=== PATIENT | female | born 1995 | race African-American/Black ===

== ENCOUNTER 2017-06-19 09:38 | Emergency (ER) | payer OTHER, SELFPAY ==
[2017-06-19 10:16] LABS: Bilirubin Negative (Negative); Blood, Urine Negative (Negative); Glucose, Urine (Dipstick) Negative (Negative); Ketone, Urine Negative (Negative); Nitrite Negative (Negative); Protein, Urine (Dipstick) Negative (Neg-Trace)
== END 2017-06-19 10:34 | disposition home or self-care (01) ==
LOC: ERS 09:38
DX: O99.89 Other specified diseases and conditions complicating pregnancy, childbirth and the puerperium (principal); R10.31 Right lower quadrant pain; O99.331 Smoking (tobacco) complicating pregnancy, first trimester; F17.210 Nicotine dependence, cigarettes, uncomplicated
CPT/HCPCS: 81003; 81025; 99284

== ENCOUNTER 2017-07-27 10:07 | Emergency (ER) | payer MEDICAID, OTHER ==
[2017-07-27] MEDS ORDERED: Acetaminophen 500 MG TAB ONE (11:06)
== END 2017-07-27 11:25 | disposition home or self-care (01) ==
LOC: ERS 10:07
DX: J02.9 Acute pharyngitis, unspecified (principal); F17.210 Nicotine dependence, cigarettes, uncomplicated; Z79.899 Other long term (current) drug therapy
CPT/HCPCS: 87081; 87430; 99283

== ENCOUNTER 2017-09-09 15:15 | Emergency (ER) | payer OTHER ==
[2017-09-09 16:45] LABS: Bilirubin Negative (Negative); Blood, Urine Negative (Negative); Clarity CLEAR (Clear); Glucose, Urine (Dipstick) Negative (Negative); Leukocyte Small (Negative); Nitrite Negative (Negative); Protein, Urine (Dipstick) Negative (Neg-Trace); Specific Gravity, Urine 1.021 (1.002-1.036); Urobilinogen 0.2 mg/dL (0.2-1.0)
[2017-09-09 16:47] LABS: Bacteria/HPF 1+ HPF (None Seen); Hyaline Casts/LPF 0-3 HYALINE CAST LPF (0-3 Hyaline); Pathc Cast-AUWi Flag 0.27 (0-2.49); RBC/HPF 0-3 HPF (0-3); Squamous Epithelial 0-3 HPF (0-3)
== END 2017-09-09 17:01 | disposition home or self-care (01) ==
LOC: ERS 15:15
DX: O9A.212 Injury, poisoning and certain other consequences of external causes complicating pregnancy, second trimester (principal); S39.91XA Unspecified injury of abdomen, initial encounter; O23.12 Infections of bladder in pregnancy, second trimester; O99.332 Smoking (tobacco) complicating pregnancy, second trimester; F17.210 Nicotine dependence, cigarettes, uncomplicated; Y04.2XXA Assault by strike against or bumped into by another person, initial encounter
CPT/HCPCS: 81003; 81015

== ENCOUNTER 2017-09-09 17:26 | Day surgery (SDC) | payer OTHER ==
[2017-09-09 17:34] VITALS: BP 136/78; TEMP 98.8; BMI 34.3
[2017-09-09] MEDS ORDERED: FLU VACC QS2017-18 36 mo. & older 0.5 ML SYRINGE IM ONE (18:15)
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
== END 2017-09-09 19:25 | disposition home or self-care (01) ==
LOC: L&D/OP 17:26
PROVIDERS: ATTEND Family Medicine
DX: O99.89 Other specified diseases and conditions complicating pregnancy, childbirth and the puerperium (principal); R10.813 Right lower quadrant abdominal tenderness; O99.322 Drug use complicating pregnancy, second trimester; F12.90 Cannabis use, unspecified, uncomplicated; Z3A.24 24 weeks gestation of pregnancy; Z79.899 Other long term (current) drug therapy
CPT/HCPCS: 76805; 81003; 81015; 99282

== ENCOUNTER 2017-11-20 09:54 | Observation (INO) | payer OTHER ==
[2017-11-20 10:51] VITALS: BMI 32.8
--- NOTE | 2017-11-20 11:29 | PDOC.LDHP ---
Labor and Delivery H&P Chief complaint: other (Elevated BP in clinic) HPI: 22 G1 at 34.5 w/hx of PIH here due to concern for Pre eclampsia. In clinic today she had BPs in the 150s/90s, typically she has been 140s/90s for the past few weeks. She is not taking any oral meds for PIH. has been otherwise uncomplicated. She is currently getting weekly BPP/NST. She is scheduled for induction at 37 weeks. She denies loss of fluid, decreased movement, or vaginal bleeding. She does have a headache. She denies changes in vision, dizziness, or abd pain Current gestational age (weeks): 34 (34.5) Due date: 12/27/17 Grav: 1 Current complications: hypertension, other (Previous tobacco and marijuana use) Abnormal US findings: No Current medications: pre-mandy vitamins - Physical Exam Abnormal vital signs: BP 159/106 General: NAD Heart: RRR Lungs: CTAB Abdomen: gravid Extremeties: no edema FHT: category 1, variability present, absent or minimal variables [place] contractions every: rare - OB Labs Blood type: A RH: positive Antibody Screen: negative HIV: negative RPR: negative HEPSAg: negative 1 hour GCT: negative GBS: unknown Rubella: immune - Assessment Gestational HTN, concern for pre - Plan Plan: observation in L&D -: HTN, r/o pre e - Urine protein/cr, CMP, CMC, Uric acid - monitor BP - Continuous monitoring - BPP/NST - 1g tylenol for headache - BP has improved to low 150s systolic from high of 159 systolic. Pt will need PO antihypertensives outpt. Will use IV meds if indicated while here. - Re evaluate after labs result, will likely obs pt over night. <Noel Alvarado - Last Filed: 11/20/17 11:23> <Brittany Li - Last Filed: 11/20/17 14:52> Allergies/Adverse Reactions: Allergies Allergy/AdvReac Type Severity Reaction Status Date / Time No Known Allergies Allergy Verified 09/09/17 17:35 Attending Addendum - Attending Addendum Date/Time: 11/20/17 3833 I personally evaluated the patient and discussed the management with Dr. Alvarado I agree with the History, Examination, Assessment and Plan documented above with any addition or exceptions noted below. 22 yo female at 34.5 wks by LMP 1. sIUP: IOB labs and anatomy reviewed. 1 hour gtt WNL. 3T negative. GBS to be collected today. 2. gHTN: Sent from clinic for elevated blood pressure. Has been on the monitor with occasional severe range (3x) but not consistent. Labs stable for previous. Initially had a headache that resolved with Tylenol. Will start collection of 24 hour protein and continue to monitor blood pressure overnight to see if remains elevated. If remains elevated to 150s will give steroids. If remains severe will likely start steroids along with induction of labor. BPP 03/07. Reactive NST. CL = 5 cm. EFW = 2332 (27%). Repeat labs in AM. 3. Hx of marijuana use: Repeat UDS pending 4. Hx of Chlamydia: FRANCHESCA negative Will place in obs and monitor closely for changes. Karin <Brittany Li - Last Filed: 11/20/17 14:52>
[2017-11-20] MEDS ORDERED: Acetaminophen 500 MG TAB PO SCH (11:45)
[2017-11-20 12:29] LABS: Creatinine, Urine 52.69 mg/dL (47-110); Protein, Urine Random Quant Less than 10 mg/dL
[2017-11-20] MEDS: Lactated Ringer's 1,000 ML IV SCH (13:00)
[2017-11-20] MEDS ORDERED: Sodium Chloride 0.9% 1,000 ML IV SCH (13:00)
[2017-11-20 13:10] LABS: #Basophils 0.1 thou/uL (0.0-0.2); #Eosinphils 0.1 thou/uL (0.0-0.7); #Lymphocytes 1.5 thou/uL (1.20-3.40); #Monocytes 0.6 thou/uL (0.11-0.59); #Neutrophils 6.2 thou/uL (1.40-6.50); %Basophils 0.7 % (0.0-1.0); %Eosinophils 1.1 % (0.0-10.0); %Lymphocytes 17.3 % (21.0-51.0); %Monocytes 7.3 % (0.0-10.0); %Neutrophils 73.5 % (42.0-75.0); Hemoglobin 12.8 g/dL (12.0-16.0); Mean Platelet Volume 7.5 fL (7.4-10.4); Platelet Count 196 thou/uL (130-400); RBC Distribution Width 11.4 % (11.5-14.5); Red Blood Cell (RBC) Count 4.14 mill/uL (4.20-5.40); White Blood Cell (WBC) Count 8.5 thou/uL (4.8-10.8)
[2017-11-20 13:41] LABS: ALT (SGPT) 19 U/L (8-55); AST (SGOT) 21 U/L (5-34); Albumin 3.8 g/dL (3.5-5.0); Alkaline Phosphatase 145 U/L (40-150); Anion Gap 12 mmol/L (10-20); BUN (Urea Nitrogen) 6 mg/dL (7.0-18.7); Bilirubin, Total 0.4 mg/dL (0.2-1.2); Calc. Creatinine Clearance 185 mL/min (70-130); Calcium 8.7 mg/dL (7.8-10.44); Carbon Dioxide 21 mmol/L (22-29); Chloride 106 mmol/L (98-107); Estimated GFR-MDRD Greater than 90; Glucose 89 mg/dL (70-105); Potassium 3.2 mmol/L (3.5-5.1); Protein, Total 6.8 g/dL (6.0-8.3); Sodium 136 mmol/L (136-145); Uric Acid 4.1 mg/dL (2.6-6.0)
--- NOTE | 2017-11-20 13:44 | ULT ---
ULTRASOUND BIPOHYSICAL PROFILE: HISTORY: Preeclampsia. FINDINGS: A single live intrauterine gestation was seen with a heart rate of 130 b.p.m. The LISA measures 14 cm. Placenta is posteriorly located without evidence of placenta previa. There is normal tone, breathing, movement, and amniotic fluid volume. IMPRESSION: Ultrasound biophysical score is 8 out of 8. POS: [facility]
--- NOTE | 2017-11-20 14:10 | PDOC.LDPN ---
Labor & Delivery Progress Note - Subjective Subjective: comfortable - Objective Abnormal vital signs: Multiple BP over 140/80 Uterine fundus: non tender FHT: category 1, variability present, absent or minimal variables [place] contractions every: few - Assessment (1) Gestational hypertension Code(s): O13.9 - GESTATIONAL HTN W/O SIGNIFICANT PROTEINURIA, UNSP TRIMESTER Current Visit: Yes Status: Acute QualifierTitle: Trimester: third trimester Qualified Code(s): O13.3 - Gestational [-induced] hypertension without significant proteinuria, third trimester Comment: Continue to monitor over night. Pt has had 2 severe range pressures. If these continue will consider giving steroids and IOL. Continue 24 hour urine protein, CBC/CMP in am, continuous monitoring. (2) Third trimester Code(s): Z34.93 - ENCNTR FOR SUPRVSN OF NORMAL PREG, UNSP, THIRD TRIMESTER Current Visit: Yes Status: Acute (3) Hypokalemia Code(s): E87.6 - HYPOKALEMIA Current Visit: Yes Status: Acute Comment: Mg pending. Will replace K and Mg if indicated. Plan: other <Noel Alvarado - Last Filed: 11/20/17 14:06> Attending Addendum - Attending Addendum Date/Time: 11/20/17 1500 I personally evaluated the patient and discussed the management with Dr. Alvarado I agree with the History, Examination, Assessment and Plan documented above with any addition or exceptions noted below. 22 yo female at 34.5 wks by LMP/18.6 wk sono here for preeclampsia rule out. 1. sIUP: IOB labs and anatomy reviewed. 1 hour gtt WNL. 3T negative. GBS to be collected today. 2. gHTN: Sent from clinic for elevated blood pressure. Has been on the monitor with occasional severe range (3x) but not consistent. Labs stable from previous but uric acid is slowly trending up (3.5 --> 3.7 --> 4.0 --> 4.1). Initially had a headache that resolved with Tylenol. Will start collection of 24 hour protein and continue to monitor blood pressure and symptoms overnight to see changes persist. If remains elevated to 150s will give steroids. If remains severe will likely start steroids along with induction of labor. BPP /. Reactive NST. CL = 5 cm. EFW = 2332 (27%). Repeat labs in AM. 3. Hx of marijuana use: Repeat UDS pending 4. Hx of Chlamydia: FRANCHESCA negative Will place in obs and monitor closely for changes. Karin <Brittany Li - Last Filed: 11/20/17 15:01>
[2017-11-20] MEDS ORDERED: diphenhydrAMINE 25 MG CAP PO SCH (14:30)
[2017-11-20] MEDS ORDERED: Acetaminophen 500 MG TAB PO PRN (14:33)
[2017-11-20] MEDS ORDERED: Docusate 100 MG CAP PO PRN (14:33)
[2017-11-20] MEDS ORDERED: diphenhydrAMINE 50 MG CAP PO PRN (14:33)
[2017-11-20] MEDS ORDERED: Ondansetron HCl/PF 4 MG/2 ML Vial IVP PRN (14:33)
[2017-11-20] MEDS ORDERED: Potassium Chloride 20 MEQ TAB PO SCH (14:45)
[2017-11-20 15:14] LABS: Amphetamine Not Detected (NotDetected); Barbiturates Screen Not Detected (NotDetected); Benzodiazepine Screen Not Detected (NotDetected); Cocaine Metabolite Screen Not Detected (NotDetected); Medtox Control Line Valid? VALID (VALID); Medtox Reader # READER 1; Methadone Not Detected (NotDetected); Methamphetamine Not Detected (NotDetected); Opiate Screen Not Detected (NotDetected); Oxycodone Screen Not Detected (NotDetected); Phencyclidine (PCP) Not Detected (NotDetected); THC/Cannabinoid Screen Not Detected (NotDetected); Tricyclic Screen Not Detected (NotDetected)
--- NOTE | 2017-11-20 15:43 | ULT ---
OB ULTRASOUND LIMITED: History: Assess for growth. Comparison: 09-09-17 FINDINGS: Cervix is closed. The biparietal diameter is 8.6 cm, 34 weeks 5 days. Head circumference is 31.19 cm, 34 weeks 6 days. Abdominal circumference is 29.64 cm, 33 weeks 4 days. Femur length is 6.65 cm, 34 w eeks 2 day. Estimated weight is 2332 grams, 27th percentile. Heart rate is documented. IMPRESSION: Estimated weight of 5 lbs. 2 oz., 27th percentile. POS: [facility]
[2017-11-21 05:39] LABS: #Eosinphils 0.1 thou/uL (0.0-0.7); #Lymphocytes 0.5 thou/uL (1.20-3.40); #Monocytes 0.6 thou/uL (0.11-0.59); #Neutrophils 6.1 thou/uL (1.40-6.50); %Basophils 0.1 % (0.0-1.0); %Eosinophils 1.3 % (0.0-10.0); %Lymphocytes 6.6 % (21.0-51.0); %Monocytes 8.6 % (0.0-10.0); %Neutrophils 83.4 % (42.0-75.0); Hemoglobin 11.8 g/dL (12.0-16.0); Mean Corpuscular HGB CONC 34.5 g/dL (32.0-36.0); Mean Corpuscular Hemoglobin 30.9 pg (27.0-31.0); Mean Corpuscular Volume 89.6 fl (81.0-99.0); Mean Platelet Volume 7.5 fL (7.4-10.4); Platelet Count 191 thou/uL (130-400); RBC Distribution Width 11.3 % (11.5-14.5); Red Blood Cell (RBC) Count 3.83 mill/uL (4.20-5.40); White Blood Cell (WBC) Count 7.3 thou/uL (4.8-10.8)
[2017-11-21 05:48] LABS: ALT (SGPT) 16 U/L (8-55); AST (SGOT) 17 U/L (5-34); Albumin 3.3 g/dL (3.5-5.0); Alkaline Phosphatase 128 U/L (40-150); Anion Gap 8 mmol/L (10-20); BUN (Urea Nitrogen) 5 mg/dL (7.0-18.7); Bilirubin, Total 0.5 mg/dL (0.2-1.2); Calc. Creatinine Clearance 190 mL/min (70-130); Calcium 8.7 mg/dL (7.8-10.44); Carbon Dioxide 25 mmol/L (22-29); Chloride 107 mmol/L (98-107); Estimated GFR-MDRD Greater than 90; Globulin 3.2 g/dL (2.4-3.5); Glucose 81 mg/dL (70-105); Potassium 3.6 mmol/L (3.5-5.1); Protein, Total 6.5 g/dL (6.0-8.3); Sodium 136 mmol/L (136-145)
[2017-11-21] MEDS: Lactated Ringer's 1,000 ML IV SCH (06:53)
--- NOTE | 2017-11-21 07:59 | PDOC.LDPN ---
Labor & Delivery Progress Note - Subjective Subjective: comfortable - Objective Abnormal vital signs: Few elevated pressures, none above 150/90 over night. Most 130s/60s General: NAD Uterine fundus: non tender FHT: category 1, variability present, absent or minimal variables [place] contractions every: few - Assessment (1) Gestational hypertension Code(s): O13.9 - GESTATIONAL HTN W/O SIGNIFICANT PROTEINURIA, UNSP TRIMESTER Current Visit: Yes Status: Acute QualifierTitle: Trimester: third trimester Qualified Code(s): O13.3 - Gestational [-induced] hypertension without significant proteinuria, third trimester Comment: BP has stabilized, no more severe range pressures. Morning labs stable. Continue 24 hour urine, possible dc this afternoon (2) Third trimester Code(s): Z34.93 - ENCNTR FOR SUPRVSN OF NORMAL PREG, UNSP, THIRD TRIMESTER Current Visit: Yes Status: Acute (3) Hypokalemia Code(s): E87.6 - HYPOKALEMIA Current Visit: Yes Status: Resolved Comment: Resolved Plan: continue plan of care <Noel Alvarado - Last Filed: 11/21/17 07:56> Attending Addendum - Attending Addendum Date/Time: 11/21/17926 I personally evaluated the patient and discussed the management with Dr. Alvarado. I agree with the History, Examination, Assessment and Plan documented above with any addition or exceptions noted below. Patient is asymptomatic. She is sad to be away from her . Her I/Os are negative since admission. Complete Mag course. Consider discharge tomorrow. <Seth Banda - Last Filed: 11/21/17 09:28>
[2017-11-21] MEDS ORDERED: Ferrous Sulfate 325 MG TAB PO SCH (08:00)
[2017-11-21] MEDS ORDERED: Prenatal Vitamin 1 TAB PO SCH (09:00)
[2017-11-21 11:13] LABS: Collection Duration 24 hrs; Urine Total Volume 4000 mL (600-1600)
[2017-11-21 11:48] LABS: Protein, Urine Less than 10 mg/dL (1-14)
[2017-11-21 14:08] VITALS: BP 145/86; TEMP 98.8
--- NOTE | 2017-11-21 15:49 | DIS-2 ---
DATE OF ADMISSION: 11/20/2017 DATE OF DISCHARGE: 11/21/2017 RESIDENT: Noel Alvarado DO ADMITTING ATTENDING: Brittany Li M.D. DISCHARGE ATTENDING: Seth Banda M.D. CONSULTATIONS: None. PROCEDURES: None. ADMITTING DIAGNOSIS: Gestational hypertension. SECONDARY DIAGNOSES: 1. Third trimester . 2. Hyperkalemia. DISCONTINUED MEDICATIONS: None. DISCHARGE MEDICATIONS: vitamin 1 p.o. daily. BRIEF HISTORY AND HOSPITAL COURSE: This is a 22-year-old G1 at 34 and 5 weeks with a known history of gestational hypertension, was seen in L&D for observation and subsequent admission after being seen in clinic with increased blood pressures of her baseline. Typically at home, her blood pressures are in the 140s/80s; however, in clinic yesterday, blood pressure was consistently in the 150s. Upon arrival in L&D, her blood pressure initially in the high 150s over 100s systolic; however, there were multiple blood pressures in the severe range as high as 170 systolic. Previous workup outpatient has been negative for preeclampsia. Her LFTs, platelets, and urine protein have all been normal. Labs on admission were consistent with previous. There were no significant lab abnormalities with the exception of potassium of 3.2 upon admission. This was replaced p.o. after her mag level was drawn in the normal range. Upon admission, the patient was complaining of a headache; however, this resolved with one dose of Tylenol. The patient was observed overnight for a 24-hour urine. Initial protein creatinine ratio was negative. His urine protein was less than 10. Urine creatinine was 52.65. A 24-hour urine protein was unable to be calculated because it was undetectable. Over the course of the observation, the patient's blood pressures never needed to be medicated and quickly improved with resolution of the headache with blood pressures typically in the 130s over 60s and no blood pressures over 150 after initial presentation. The patient was discharged with instructions to continue to check her blood pressures and to follow up in 3 days. DISCHARGE INSTRUCTIONS: 1. Location: Home. 2. Diet: Regular. 3. Activity: ad nabil. 4. Followup: [facility] Stephen Chamberlain, [facility] within 3 days. [facility] CENTERLizzette
== END 2017-11-21 14:25 | disposition home health service (06) ==
LOC: L&D/OP 09:54 → INTOOBSV 14:39 → L&D 14:39
PROVIDERS: ADMIT Student in an Organized Health Care Education/Training Program; ATTEND Family Medicine
DX: O13.3 Gestational [pregnancy-induced] hypertension without significant proteinuria, third trimester (principal); E87.5 Hyperkalemia; Z3A.34 34 weeks gestation of pregnancy; Z79.899 Other long term (current) drug therapy; Z87.891 Personal history of nicotine dependence
CPT/HCPCS: 36415; 76815; 76819; 80053; 80306; 82570; 83735; 84156; 84550; 85025; 87077; 87081; 96360; 96361; 99285; G0378

== ENCOUNTER 2017-12-05 20:00 | Inpatient (IN) | payer OTHER ==
[2017-12-05 20:50] VITALS: BMI 34.1
[2017-12-05] MEDS: Lactated Ringer's 1,000 ML IV SCH (21:05)
[2017-12-05] MEDS ORDERED: Docusate 100 MG CAP PO PRN (21:29)
[2017-12-05] MEDS ORDERED: Ondansetron HCl/PF 4 MG/2 ML Vial IVP PRN (21:29)
[2017-12-05] MEDS ORDERED: Calcium Gluc 4.6 MEQ/10 ML (100 MG/ML) SLOW IVP PRN (21:29)
[2017-12-05] MEDS ORDERED: Promethazine HCl 25 MG/ML VIAL IM PRN (21:29)
[2017-12-05] MEDS ORDERED: NS / Oxytocin 40 units/1000ml 1,000 ML IV PRN (21:29)
[2017-12-05] MEDS ORDERED: Lidocaine 1% (PF) 30 ML VIAL SC PRN (21:29)
--- NOTE | 2017-12-05 21:48 | PDOC.LDHP ---
Labor and Delivery H&P Chief complaint: scheduled induction HPI: 22 yo GBS + F @ 36.6 presents for IOL 2/2 gestational htn. Pt complicated by gestational htn and decreasing hadlock. Initial hadlock percentage was 77%, decreased to 32% and most recent Hadlock was 23%. Additionally, pts creatinine and uric acid has been increasing to 0.4 and 0.7 for uric acid and creatinine, respectively. Currently pt denies headache, nvdc, cp, sob, scotomata. Does reports recent headache approx one day ago that did not resolve with tylenol. Since admission to L&D she has had one BP >160 sys. Otherwise reports good movement, denies LOF, vaginal pain/pressure, cramping and contractions. Current gestational age (weeks): 37 Due date: 12/27/17 Dating criteria: last menstrual period, first trimester ultrasound Grav: 1 Para: 0 Current complications: gestational hypertension Abnormal US findings: No Current medications: pre- vitamins Previous surgical history: none Social history: tobacco use (early in , abstained since), alcohol use ( early in , abstained since), drug use (cannabinoid positive previous UDS) - Physical Exam Abnormal vital signs: BP >140, one systolic >160 General: NAD Heart: RRR Lungs: nonlabored breathing Abdomen: NTTP Extremeties: no edema FHT: category 1 (140baseline mod variability), variability present [place] contractions every: None - Vaginal Exam cm dilated: 1 Effacement: 100% Station: -3 - OB Labs Blood type: A RH: positive Antibody Screen: negative HIV: negative RPR: negative HEPSAg: negative 1 hour GCT: negative GBS: positive Urine drug screen: positive (previous positive for cannabinoids) Rubella: immune - Assessment L&D Assessment: medically indicated induction (2/2 gestational htn, decreasing Hadlock, increaing creatinine) - Plan Plan: admit to L&D, cervical ripening, labor augmentation if indicated, GBS antibiotic prophylaxis, anesthesia consult for pain management -: Admit L&D for induction 2/2 gestational htn + decreasing Hadlock, increasing creatinine Cytotec induction @ 36.6 2/2 gestational htn and one bp >160sys. Continue to monitor vitals per routine and notify physician for BP >160/110. CMP, CBC, uric acid, urine protein/creatinine ratio; consider mag if indicated, labs pending GBS+ will order pen G to be started after positive cervical change Previous UDS + drug screen, will repeat cervical checks q4hrs Bedside US showed left lateral posterior placenta, vertex presentation, heart motion +. <Roberto Carlos Alvarado - Last Filed: 12/05/17 22:07> <Brittany Li - Last Filed: 12/06/17 07:43> Allergies/Adverse Reactions: Allergies Allergy/AdvReac Type Severity Reaction Status Date / Time No Known Allergies Allergy Verified 12/05/17 20:39 Attending Addendum - Attending Addendum Date/Time: 12/06/17 0737 I personally evaluated the patient and discussed the management with Dr. Alvarado I agree with the History, Examination, Assessment and Plan documented above with any addition or exceptions noted below. 22 yo female at 36.6 wks by 18.6 wk sono admitted for initiation of IOL for severe gHTN. 1. sIUP: IOB labs and anatomy reviewed. 1 hour gtt <130. 3T negative. Tdap given. GBS positive. 2. GBS positive: PCN. 3. Sever gHTN: Asymptomatic. Labs trending on spectrum -- PLT down trending, Uric acid, Cr, and AST up trending. No evidence of proteinuria. BP has been upper limits of mild range. Initial BP severe but not persistent. Monitor closely. Seizure ppx as needed. 4. IOL: Miso. R/B/A discussed. Questions answered. ABrayMD <Brittany Li - Last Filed: 12/06/17 07:43>
[2017-12-05] MEDS: Penicillin G Potassium 5 MILL.UNITS in Sodium Chloride 0.9% 100 ML IVPB SCH (21:58)
[2017-12-05] MEDS: Misoprostol 100 MCG TAB VAG SCH (22:00)
[2017-12-05 22:09] LABS: Hemoglobin 11.7 g/dL (12.0-16.0); Mean Corpuscular HGB CONC 35.4 g/dL (32.0-36.0); Mean Corpuscular Hemoglobin 31.7 pg (27.0-31.0); Mean Corpuscular Volume 89.4 fl (81.0-99.0); Platelet Count 208 thou/uL (130-400); RBC Distribution Width 11.7 % (11.5-14.5); Red Blood Cell (RBC) Count 3.68 mill/uL (4.20-5.40); White Blood Cell (WBC) Count 8.3 thou/uL (4.8-10.8)
[2017-12-05 22:18] LABS: Bilirubin Negative (Negative); Blood, Urine Negative (Negative); Clarity CLEAR (Clear); Glucose, Urine (Dipstick) Negative (Negative); Leukocyte Moderate (Negative); Nitrite Negative (Negative); Protein, Urine (Dipstick) Negative (Neg-Trace); Specific Gravity, Urine 1.007 (1.002-1.036)
[2017-12-05 22:19] LABS: Bacteria/HPF Rare-Few HPF (None Seen); Hyaline Casts/LPF 0-3 HYALINE CAST LPF (0-3 Hyaline); RBC/HPF 0-3 HPF (0-3)
[2017-12-05 22:26] LABS: Amphetamine Not Detected (NotDetected); Barbiturates Screen Not Detected (NotDetected); Benzodiazepine Screen Not Detected (NotDetected); Cocaine Metabolite Screen Not Detected (NotDetected); Medtox Control Line Valid? VALID (VALID); Medtox Reader # READER 4; Methadone Not Detected (NotDetected); Methamphetamine Not Detected (NotDetected); Opiate Screen Not Detected (NotDetected); Oxycodone Screen Not Detected (NotDetected); Phencyclidine (PCP) Not Detected (NotDetected); THC/Cannabinoid Screen Not Detected (NotDetected); Tricyclic Screen Not Detected (NotDetected)
[2017-12-05 22:44] LABS: Syphilis Antibody Nonreactive (Nonreactive); Syphilis Antibody Index 0.05 S/CO (<1.00 Non-Reactive)
[2017-12-05 22:50] LABS: ALT (SGPT) 16 U/L (8-55); AST (SGOT) 26 U/L (5-34); Albumin 3.3 g/dL (3.5-5.0); Alkaline Phosphatase 151 U/L (40-150); Anion Gap 18 mmol/L (10-20); BUN (Urea Nitrogen) 6 mg/dL (7.0-18.7); Bilirubin, Total 0.3 mg/dL (0.2-1.2); Calc. Creatinine Clearance 181 mL/min (70-130); Calcium 8.4 mg/dL (7.8-10.44); Carbon Dioxide 17 mmol/L (22-29); Chloride 106 mmol/L (98-107); Estimated GFR-MDRD Greater than 90; Globulin 3.3 g/dL (2.4-3.5); Glucose 124 mg/dL (70-105); Potassium 4.1 mmol/L (3.5-5.1); Protein, Total 6.6 g/dL (6.0-8.3); Sodium 137 mmol/L (136-145); Uric Acid 4.5 mg/dL (2.6-6.0)
[2017-12-05 23:17] LABS: Creatinine, Urine 51.01 mg/dL (47-110); Protein, Urine Random Quant Less than 10 mg/dL
[2017-12-05 23:34] LABS: HBSAg Index 0.27 S/CO (0-0.99); Hep B Surf Ag Non-Reactive S/CO (NonReactive)
--- NOTE | 2017-12-06 02:35 | PDOC.LDPN ---
Labor & Delivery Progress Note - Subjective Subjective: painful contractions, other (Denies scotomata, headache, cp, sob, nvdc. Painful contractions q1min.) - Objective Abnormal vital signs: Elevated Bpof 140s systolic one non-consecutaive reading of 170 systolic General: breathing through contractions, other (painful contractions and pressure) Uterine fundus: non tender Dilation: 3 Effacement: 50% Station: -3 FHT: category 1, variability present [place] contractions every: 1min Resuscitative measures: maternal oxygen, maternal IV fluids, maternal position change - Assessment (1) Gestational hypertension Code(s): O13.9 - GESTATIONAL HTN W/O SIGNIFICANT PROTEINURIA, UNSP TRIMESTER Current Visit: No Status: Acute Comment: BP has stabilized, no more severe range pressures. Morning labs stable. Continue 24 hour urine, possible dc this afternoon Plan: continue plan of care, labor augmentation, resuscitative measures -: -Pre-e labs negative. Protein/Cr ratio <.3. Uric acid 4.5, creatinine .73, increased from 4.0 and .7 on previous labs. -continue to monitor pressures, two isolated elevated pressures pt was in pain and on BP cuff, BP returned to baseline 140s after elevated BP reading. Pt also remains asymptomatic. No headache, scotomata, ruq pain/epigastric pain, relfexes normal. Notify physician if persistent elevated pressures. Notify physician if BP >160/110 -Anesthesia consulted for epidural. -Cervical checks q2hr <Roberto Carlos Alvarado - Last Filed: 12/06/17 02:34> Attending Addendum - Attending Addendum Date/Time: 12/06/17 6845 I personally evaluated the patient and discussed the management with Dr. Alvarado I agree with the History, Examination, Assessment and Plan documented above with any addition or exceptions noted below. 22 yo female at 37.0 wks by 18.6 wk sono admitted for initiation of IOL for severe gHTN. 1. sIUP: IOB labs and anatomy reviewed. 1 hour gtt <130. 3T negative. Tdap given. GBS positive. 2. GBS positive: PCN. 3. Sever gHTN: Asymptomatic. Labs trending on spectrum -- PLT down trending, Uric acid, Cr, and AST up trending. No evidence of proteinuria. BP has been upper limits of mild range. Severe range BP during epidural only. Monitor closely. Seizure ppx as needed. 4. IOL: Cephalic. Left posterior lateral placenta. Miso x1. Now with persistent contractions q 1 min. CAt 1 tracing. Will hydrate with prn bolus. Hold miso. Now 3 cm. Karin <Brittany Li - Last Filed: 12/06/17 07:49>
[2017-12-06] MEDS: Lactated Ringer's 1,000 ML IV SCH ×2 (02:36→08:11)
[2017-12-06] MEDS ORDERED: Bupivacaine 0.5% 20 ML, fentaNYL Citrate/PF 400 MCG in Sodium Chloride 0.9% 72 ML EPIDURAL SCH (02:45)
[2017-12-06] MEDS ORDERED: ePHEDrine/0.9% NaCl/PF SYRINGE 50 mg/10 ml SLOW IVP PRN (03:58)
[2017-12-06] MEDS ORDERED: Eucerin (Mineral Oil/Petrolatum,White) 30 gm Jar TOP PRN (03:58)
[2017-12-06] MEDS ORDERED: Lactated Ringer's 500 ML IV PRN (03:58)
[2017-12-06] MEDS ORDERED: Naloxone HCl 0.4 mg/ml Vial IVP PRN (03:58)
[2017-12-06] MEDS ORDERED: Fentanyl 4mcg/Marcaine 0.1% Cassette 100 ML EPIDURAL SCH (04:00)
[2017-12-06] MEDS ORDERED: Communication Order-Pharmacy FS SCH (04:00)
[2017-12-06] MEDS: Penicillin G 2.5 MILL.units 2.5 MILL.UNITS in Premix Bag 1 BAG IVPB SCH ×4 (04:06→12:56)
[2017-12-06] MEDS: Misoprostol 100 MCG TAB VAG SCH ×4 (04:07→15:59)
[2017-12-06] MEDS: Penicillin G Potassium 5 MILL.UNITS in Sodium Chloride 0.9% 100 ML IVPB SCH (04:20)
--- NOTE | 2017-12-06 07:23 | PDOC.LDPN ---
Labor & Delivery Progress Note - Subjective Subjective: comfortable - Objective Abnormal vital signs: BP range 132/65-187/112 (180s/110s were while sitting up getting epidural) General: NAD, resting Uterine fundus: palpable contractions SVE: @ 0600 by nurse Dilation: 4 Effacement: 50% Station: -3 FHT: category 1 (Baseline 130/Mod [place]/+accels/-decels), variability present [place] contractions every: 1-2 minutes - Assessment (1) Encounter for induction of labor Code(s): Z34.90 - ENCNTR FOR SUPRVSN OF NORMAL , UNSP, UNSP TRIMESTER Current Visit: Yes Status: Acute Comment: 22 y/o @ 37.0 WGA IOL for gestational HTN Cervical check @ 0600 4/50/-3, ctx q1-2 minutes s/p 1 dose of cytotec -Wait for ctx to space out some so we can start pit -cervical checks q2h -Continuous monitoring -epidural in place for pain control (2) Gestational hypertension Code(s): O13.9 - GESTATIONAL HTN W/O SIGNIFICANT PROTEINURIA, UNSP TRIMESTER Current Visit: No Status: Acute Comment: Pre-e labs negative. Protein/Cr ratio <.3. Uric acid 4.5, creatinine .73, increased from 4.0 and .7 on previous labs. few isolated elevated pressures pt was in pain and when pt was getting epidural , BP returned to baseline 140s after elevated BP reading. Pt also remains asymptomatic. No headache, scotomata, ruq pain/epigastric pain, relfexes normal. -Monitor BP closely -Notify physician if persistent elevated pressures. Notify physician if BP >160/ 110 Plan: continue plan of care <Samina Gimenez - Last Filed: 12/06/17 07:22> Attending Addendum - Attending Addendum Date/Time: 12/06/17 7935 I personally evaluated the patient and discussed the management with Dr. Gimenez I agree with the History, Examination, Assessment and Plan documented above with any addition or exceptions noted below. 22 yo female at 37.0 wks by 18.6 wk sono admitted for initiation of IOL for severe gHTN. 1. sIUP: IOB labs and anatomy reviewed. 1 hour gtt <130. 3T negative. Tdap given. GBS positive. Epidural in place. 2. GBS positive: PCN. 3. Severe gHTN: Asymptomatic. Labs trending on spectrum -- PLT down trending, Uric acid, Cr, and AST up trending. No evidence of proteinuria. BP has been upper limits of mild range. Severe range BP during epidural only. Monitor closely. Seizure ppx as needed. 4. IOL: Cephalic. Left posterior lateral placenta. EFW = 6.5 to 7 lbs. Miso x1. Continues to have frequent contractions. IVF bolus prn to help uterus to stay hydrated. Cat 1 tracing. Now 4 cm. Repeat exam in 2 hours. Karin <Brittany Li - Last Filed: 12/06/17 07:52>
[2017-12-06] MEDS ORDERED: Non-Formulary Item 1 EACH (Prenatal Vit No.129/Iron/Folic [Prenatal One Daily Tablet] 1 E PO SCH (09:00)
[2017-12-06] MEDS ORDERED: Calcium Gluc 4.6 MEQ/10 ML (100 MG/ML) SLOW IVP PRN (09:04)
[2017-12-06] MEDS ORDERED: Labetalol HCl 100 MG/20 ML VIAL SLOW IVP PRN ×2 (09:10→17:08)
[2017-12-06] MEDS ORDERED: NS w/ Oxytocin 10 units 500 ML IV SCH (09:15)
[2017-12-06] MEDS ORDERED: Magnesium Sulfate 20 GM/WATER 500 ML BAG IVPB SCH (09:15)
[2017-12-06] MEDS: Magnesium Sulfate 20 gm/500 ml 20 GM/500 ML BAG IVPB SCH ×2 (09:26→18:05)
[2017-12-06] MEDS ORDERED: LR 500 ML/Oxytocin 10 units 500 ML ONE (09:35)
--- NOTE | 2017-12-06 10:01 | PDOC.LDPN ---
Labor & Delivery Progress Note - Subjective Subjective: comfortable - Objective Abnormal vital signs: Patient had 3 BP in the severe range > 160/110 in a row. General: NAD Uterine fundus: palpable contractions SVE: @ 0600 Dilation: 4 Effacement: 50% Station: -3 FHT: category 1, variability present [place] contractions every: 1-5 minutes - Assessment (1) Encounter for induction of labor Code(s): Z34.90 - ENCNTR FOR SUPRVSN OF NORMAL , UNSP, UNSP TRIMESTER Current Visit: Yes Status: Acute Comment: 22 y/o @ 37.0 WGA IOL for gestational HTN Cervical check @ 0600 4/50/-3, ctx q1-5 min s/p 1 dose of cytotec -Will start on pit as ctx have spaced out -cervical checks q2h -Continuous monitoring -epidural in place for pain control (2) Pre-eclampsia, severe Code(s): O14.10 - SEVERE PRE-ECLAMPSIA, UNSPECIFIED TRIMESTER Current Visit: Yes Status: Acute QualifierTitle: Trimester: third trimester Qualified Code(s): O14.13 - Severe pre-eclampsia, third trimester Comment: Pre-e labs negative. Protein/Cr ratio <.3. Uric acid 4.5, creatinine .73, increased from 4.0 and .7 on previous labs. IOL for Gestational HTN Pt now meets criteria for Severe Pre-Eclampsia due to elevated BP's. Pt remains asymptomatic. No headache, scotomata, ruq pain/epigastric pain, relfexes normal. -Monitor BP closely -Start on Mag -Mag checks q2h -Labetalol prn for sustained elevated BP's -Repeat labs if decreased UOP (3) Positive GBS test Code(s): B95.1 - STREPTOCOCCUS, GROUP B, CAUSING DISEASES CLASSD [id number] Current Visit: Yes Status: Acute Comment: Patient GBS positive with no pencillin allergy -Penicillin G Plan: continue plan of care, pitocin for augmentation <Samina Gimenez - Last Filed: 12/06/17 09:59> Attending Addendum - Attending Addendum Date/Time: 12/06/17 3754 I personally evaluated the patient and discussed the management with Dr. Gimenez on 12/06/17. I agree with the History, Examination, Assessment and Plan documented above with any addition or exceptions noted below. Patient with 3 severe range BPs now, not related to pain or position changes. Will start Magnesium. Contractions have spaced out, will start pitocin slowly. Cat 1 strip. <Cira Mejia - Last Filed: 12/06/17 11:35>
--- NOTE | 2017-12-06 11:35 | PDOC.LDPN ---
Labor & Delivery Progress Note - Subjective Subjective: comfortable - Objective Abnormal vital signs: 4 severe range BP's in last 2 hrs (>160/110) General: NAD, resting Uterine fundus: non tender SVE: @ 1035 by nurse Dilation: 4 Effacement: 75% Station: -2 FHT: category 1 (baseline 130), variability present [place] contractions every: 2-6 min Procedures: SROM @ 1035 with clear fluid - Assessment (1) Encounter for induction of labor Code(s): Z34.90 - ENCNTR FOR SUPRVSN OF NORMAL , UNSP, UNSP TRIMESTER Current Visit: Yes Status: Acute Comment: 22 y/o @ 37.0 WGA IOL for gestational HTN Cervical check @ 1035 4/70/-2, ctx q2-6 min -On pit at 8 -cervical checks q2h -Continuous monitoring -epidural in place for pain control (2) Pre-eclampsia, severe Code(s): O14.10 - SEVERE PRE-ECLAMPSIA, UNSPECIFIED TRIMESTER Current Visit: Yes Status: Acute Qualifiers: Trimester: third trimester Qualified Code(s): O14.13 - Severe pre-eclampsia , third trimester Comment: Pre-e labs negative. Protein/Cr ratio <.3. Uric acid 4.5, creatinine .73, increased from 4.0 and .7 on previous labs. IOL for Gestational HTN Pt now meets criteria for Severe Pre-Eclampsia due to elevated BP's. Pt remains asymptomatic. No headache, scotomata, ruq pain/epigastric pain, relfexes normal. -Monitor BP closely Has had 4 severe range pressures since started on Mag -Mag was started at 0935 -Mag checks q2h Patellar and Biceps reflexes 2+ bilaterally -Labetalol prn for sustained elevated BP's -Repeat labs if decreased UOP (3) Positive GBS test Code(s): B95.1 - STREPTOCOCCUS, GROUP B, CAUSING DISEASES CLASSD ELSWHR Current Visit: Yes Status: Acute Comment: Patient GBS positive with no pencillin allergy -Penicillin G Plan: continue plan of care, pitocin for augmentation
--- NOTE | 2017-12-06 14:11 | PDOC.LDPN ---
Labor & Delivery Progress Note - Subjective Subjective: comfortable, vaginal pressure (back pain) - Objective Vital signs reviewed and normal: yes General: NAD, resting Uterine fundus: non tender SVE: 6/80/-1 per RN FHT: category 2, absent or minimal variables [place] contractions every: ctx couplets q4-5min Other exam findings: 1+/4 peripheral pulses, 150-200ml/hr UOP Procedures: none Resuscitative measures: maternal position change, other (po juice) - Assessment (1) Encounter for induction of labor Code(s): Z34.90 - ENCNTR FOR SUPRVSN OF NORMAL , UNSP, UNSP TRIMESTER Current Visit: Yes Status: Acute (2) Positive GBS test Code(s): B95.1 - STREPTOCOCCUS, GROUP B, CAUSING DISEASES CLASSD ELSWHR Current Visit: Yes Status: Acute (3) Gestational hypertension Code(s): O13.9 - GESTATIONAL HTN W/O SIGNIFICANT PROTEINURIA, UNSP TRIMESTER Current Visit: Yes Status: Acute Qualifiers: (4) Pre-eclampsia, severe Code(s): O14.10 - SEVERE PRE-ECLAMPSIA, UNSPECIFIED TRIMESTER Current Visit: Yes Status: Acute Qualifiers: Trimester: third trimester Qualified Code(s): O14.13 - Severe pre-eclampsia , third trimester Plan: continue plan of care, pitocin for augmentation -: 22yo G1 at 37.0wk here for medically-indicated IOL for gestational HTN- 1) sIUP- pain mgmt w/ epidural 2) preE with severe features- normal preE labs, but severe range BPs meets criteria. asymptomatic and good UOP & stable reflexes on MgSO4. Tx severe range BPs with labetolol & continue poc. 3) GBS positive- s/p 3 doses PCN G Continue POC with pit augmentation.
[2017-12-06] MEDS ORDERED: Ibuprofen 800 MG TAB PO SCH (17:00)
--- NOTE | 2017-12-06 17:06 | PDOC.OPDEL ---
OB Operative/Delivery Note Delivery Dr/Surgeon: Dr. Samina Gimenez. Supervising Resident - Dr. Stephen Chamberlain Assist: Dr. Cira Mejia Pre-Delivery Diagnosis: medically indicated induction Procedure/Post Delivery Dx: spontaneous vaginal delivery Weeks gestation: 37 (0 days) Anesthesia: epidural - Findings A Sex: male - 1 min: 8 - 5 min: 9 - Additional Findings/Plan Placenta delivered: spontaneous Repaired Obstetrical Laceration: none Estimated blood loss: 300 Compilations/Other Findings: This is 22yo F ->1 @ 37.0 wks who delivered a viable M at 1649. Following an uneventful antepartum course, a vigorous (sex) was delivered over an intact perineum in the occipitoanterior position. Anterior Shoulder and then remainder of the body delivered. No nuchal cord. The head was held down and mouth and nares were bulb suctioned. Cord clamped and cut and cord blood collected. was given to mother for skin to skin contact. Placenta delivered intact with a 3 vessel cord noted. Fundal massage was performed and the fundus was firm. The cervix and vagina were inspected and found to be free of lacerations. went to nursery in good condition for routine care. Apgars were 8/9 at 1 & 5 minutes, respectively. Patient tolerated delivery well and went to after routine recovery/care. Post delivery plan: routine recovery <Stephen Chamberlain - Last Filed: 12/06/17 17:04> Attending Addendum - Attending Addendum Date/Time: 12/07/17 1058 I personally evaluated the patient and discussed the management with Dr. Gimenez on 12/06/17. I agree with the History, Examination, Assessment and Plan documented above with any addition or exceptions noted below. in (now 1) at 37 weeks with severe range BPs on Magnesium. I agree with her documentation. I was present for the entire procedure. No lacerations. Well-appearing . Keep on L&D with magnesium for an additional 24 hours. <Cira Mejia - Last Filed: 12/07/17 11:01>
[2017-12-06] MEDS ORDERED: Calcium Gluconate 4.6 MEQ, Admixture Fee 1 EACH in Sodium Chloride 0.9% 100 ML IVPB PRN (17:08)
--- NOTE | 2017-12-06 20:22 | PDOC.PP ---
Post Progress Note Post Day #: 1 Subjective: 22 G1 now P1 with severe preeclampsia s/p currently on magnesium for severe range pressures. She Currently denies cp, sob, nvdc, headahce, changes in vision and epigastric/ruq abdominal pain. She has diuresed approx 1.5 L in the last 45 minutes. BP has ranged from 15-160s systolic. PRN labetolol to be given for BP >160/110. PO intake tolerated: yes Flatus: yes Ambulation: no Vital Signs (12 hours) Pulse BP 12/06/17 13:05 83 182/102 H Weight Weight 92.986 kg - Physical Examination General: NAD Cardiovascular: no m/r/g, RRR Respiratory: clear to auscultation bilaterally, non-labored breathing Abdominal: + bowel sounds, no distention, appropriately TTP (w/o ttp in the epigastric and ruq regions) Neurological: no gross focal deficits (reflexes 2+) Result Diagrams: 12/05/17 21:40 12/05/17 21:40 Additional Labs: Post Labs Blood Type A POSITIVE 12/05/17 21:11 Hep Bs Antigen Non-Reactive S/CO (NonReactive) 12/05/17 21:40 (1) Pre-eclampsia, severe Code(s): O14.10 - SEVERE PRE-ECLAMPSIA, UNSPECIFIED TRIMESTER Status: Acute QualifierTitle: Trimester: third trimester Qualified Code(s): O14.13 - Severe pre-eclampsia, third trimester - Assessment/Plan cont magnesium pt doing well and is beginning to diurese will cont to monitor pressures and labetolol prn for Bp >160/110 reflexes 2+ cont Mag checks q4hr notify physician for consecutive pressures >160/110 <Roberto Carlos Alvarado - Last Filed: 12/06/17 20:20> Vital Signs (12 hours) Temp Pulse Resp BP 12/07/17 04:00 98.5 F 86 16 12/07/17 02:26 86 163/97 H 12/07/17 00:00 99.1 F 86 16 12/06/17 20:36 98.2 F 81 18 Weight Weight 92.986 kg Result Diagrams: 12/05/17 21:40 12/05/17 21:40 Additional Labs: Post Labs Blood Type A POSITIVE 12/05/17 21:11 Hep Bs Antigen Non-Reactive S/CO (NonReactive) 12/05/17 21:40 <Brittany Li - Last Filed: 12/07/17 07:41> Attending Addendum - Attending Addendum Date/Time: 12/07/17737 I personally evaluated the patient and discussed the management with Dr. Alvarado I agree with the History, Examination, Assessment and Plan documented above with any addition or exceptions noted below. 22 yo female s/p now with severe gHTN with persistent severe range pressures. On mag for 24 hour pp. Doing well. Remains asymptomatic. Mild to borderline BP. Good diuresis. Lochia appropriate. Reflex +2. No clonus. Continue mag. No NSAIDs. ABrayMD <Brittany Li - Last Filed: 12/07/17 07:41>
--- NOTE | 2017-12-07 02:20 | PDOC.PP ---
Post Progress Note Post Day #: 1 Subjective: 22 s/p induced at 37 weeks for preeclampsia with severe features. She currently denies cp, sob, nvdc, headache, changes in vision, epigastric and ruq pain. Bp has been elevated @ 160s systolic, but non-consecutive readings. BP otherwise has remained in the 150s systolic. PO intake tolerated: yes Flatus: yes Ambulation: no Vital Signs (12 hours) Temp Pulse Resp 12/06/17 20:36 98.2 F 81 18 Weight Weight 92.986 kg - Physical Examination General: NAD Cardiovascular: no m/r/g, RRR Respiratory: clear to auscultation bilaterally, non-labored breathing Abdominal: + bowel sounds, no distention, appropriately TTP Neurological: no gross focal deficits (Reflexes are 2+, no focal deficit.) Result Diagrams: 12/05/17 21:40 12/05/17 21:40 Additional Labs: Post Labs Blood Type A POSITIVE 12/05/17 21:11 Hep Bs Antigen Non-Reactive S/CO (NonReactive) 12/05/17 21:40 (1) Pre-eclampsia, severe Code(s): O14.10 - SEVERE PRE-ECLAMPSIA, UNSPECIFIED TRIMESTER Status: Acute QualifierTitle: Trimester: third trimester Qualified Code(s): O14.13 - Severe pre-eclampsia, third trimester - Assessment/Plan elevated pressures of 160 systolic, persistent pressures in the 150s. Will give one time IV labetalol and reassess Hopefully adequate response to labetalol, if not, consider nifedapine. She continues to diureses well and has put out 1.5L over the last 1.3 hours. continue to monitor pressures if >160 notify physician. <Roberto Carlos Alvarado - Last Filed: 12/07/17 02:18> Vital Signs (12 hours) Temp Pulse Resp BP 12/07/17 04:00 98.5 F 86 16 12/07/17 02:26 86 163/97 H 12/07/17 00:00 99.1 F 86 16 12/06/17 20:36 98.2 F 81 18 Weight Weight 92.986 kg Result Diagrams: 12/05/17 21:40 12/05/17 21:40 Additional Labs: Post Labs Blood Type A POSITIVE 12/05/17 21:11 Hep Bs Antigen Non-Reactive S/CO (NonReactive) 12/05/17 21:40 <Brittany Li - Last Filed: 12/07/17 07:59> Attending Addendum - Attending Addendum Date/Time: 12/07/17 6988 I personally evaluated the patient and discussed the management with Dr. Alvarado I agree with the History, Examination, Assessment and Plan documented above with any addition or exceptions noted below. Continue 24 hour pp mag for seizure ppx due to severe gHTN. Would consider ASA ppx with future pregnancies. Remains asymptomatic. Mild range to borderline BP. Good diuresis. ABrayMD <Brittany Li - Last Filed: 12/07/17 07:59>
[2017-12-07] MEDS: Acetaminophen 500 MG TAB PO PRN ×3 (02:33→22:34)
[2017-12-07] MEDS: Magnesium Sulfate 20 gm/500 ml 20 GM/500 ML BAG IVPB SCH ×2 (04:23→13:47)
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
[2017-12-07] MEDS: Penicillin G 2.5 MILL.units 2.5 MILL.UNITS in Premix Bag 1 BAG IVPB SCH ×2 (07:35→07:36)
[2017-12-07] MEDS: Lactated Ringer's 1,000 ML IV SCH ×2 (07:36→13:47)
[2017-12-07] MEDS ORDERED: Prenatal Vitamin 1 TAB PO SCH (09:00)
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
[2017-12-07] MEDS ORDERED: Bupivacaine PF 0.5% 30 ML VIAL ONE (16:10)
[2017-12-07] MEDS ORDERED: Ibuprofen 800 MG TAB PO SCH (20:28)
[2017-12-07] MEDS ORDERED: Lanolin Ointment 7 GM TUBE TOP PRN (20:28)
[2017-12-07] MEDS ORDERED: NS / Oxytocin 40 units/1000ml 1,000 ML IV SCH (20:28)
[2017-12-07] MEDS ORDERED: Benzocaine/Menthol 20-0.5% 60 ML CAN TOP PRN (20:28)
[2017-12-07] MEDS ORDERED: Bisacodyl 10 MG SUPP PR PRN (20:28)
[2017-12-07] MEDS ORDERED: Ondansetron HCl/PF 4 MG/2 ML Vial IVP PRN (20:28)
[2017-12-07] MEDS ORDERED: diphenhydrAMINE 25 MG CAP PO PRN (20:28)
[2017-12-07] MEDS ORDERED: Adacel (T-DAP) 0.5 ML VIAL IM ONE (20:28)
[2017-12-07] MEDS ORDERED: Preparation H Ointment 28 GM TUBE PR PRN (20:28)
[2017-12-07] MEDS ORDERED: Milk Of Magnesia 30 ML UDCUP PO PRN (20:28)
[2017-12-07] MEDS ORDERED: Labetalol 100 MG TAB PO SCH ×2 (20:45→21:00)
[2017-12-07] MEDS: Prenatal Vitamin 1 TAB PO SCH (21:06)
[2017-12-07] MEDS ORDERED: NIFEdipine 10 MG CAP PO ONE (21:16)
[2017-12-07] MEDS: Docusate Calcium (SURFAK) 240 MG CAP PO SCH ×2 (21:33)
[2017-12-07] MEDS: Ferrous Sulfate 325 MG TAB PO SCH (21:34)
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
[2017-12-08] MEDS: Prenatal Vitamin 1 TAB PO SCH (08:53)
[2017-12-08] MEDS: NIFEdipine XL 30 MG TAB PO SCH (08:53)
[2017-12-08] MEDS: Ferrous Sulfate 325 MG TAB PO SCH ×2 (08:53→17:56)
[2017-12-08] MEDS: Docusate Calcium (SURFAK) 240 MG CAP PO SCH ×2 (08:53→22:00)
[2017-12-08] MEDS ORDERED: Labetalol 100 MG TAB PO SCH (09:00)
[2017-12-08] MEDS ORDERED: NIFEdipine 10 MG CAP PO SCH (09:00)
[2017-12-08] MEDS: Acetaminophen 500 MG TAB PO PRN (10:55)
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
[2017-12-09] MEDS: Docusate Calcium (SURFAK) 240 MG CAP PO SCH (09:42)
[2017-12-09] MEDS: NIFEdipine XL 30 MG TAB PO SCH (09:42)
[2017-12-09] MEDS: Prenatal Vitamin 1 TAB PO SCH (09:42)
[2017-12-09] MEDS: Ferrous Sulfate 325 MG TAB PO SCH (09:43)
[2017-12-09 15:12] VITALS: BP 140/92; TEMP 98.1
== END 2017-12-09 18:25 | disposition home or self-care (01) | DRG 775 ==
LOC: L&D 20:25 → 3SW 12-07 18:26
PROVIDERS: ADMIT Student in an Organized Health Care Education/Training Program; ATTEND Student in an Organized Health Care Education/Training Program
PROC: 10E0XZZ Delivery of Products of Conception, External Approach (ICD-10-PCS; principal; 2017-12-06)
PROC: 3E033VJ Introduction of Other Hormone into Peripheral Vein, Percutaneous Approach (ICD-10-PCS; 2017-12-06)
DX: O14.14 Severe pre-eclampsia complicating childbirth (principal); Z37.0 Single live birth; Z3A.37 37 weeks gestation of pregnancy; O99.824 Streptococcus B carrier state complicating childbirth; Z91.410 Personal history of adult physical and sexual abuse; O99.324 Drug use complicating childbirth; F12.90 Cannabis use, unspecified, uncomplicated
CPT/HCPCS: 36415; 51702; 76815; 80053; 80306; 81001; 82570; 83735; 84156; 84550; 85027; 86780; 86850; 86900; 86901; 87340; 88307; A4216; J0595; J2001; J2540; J3010; J3475; J3490; J7050; J7120; S0020

== ENCOUNTER 2018-01-24 19:31 | Emergency (ER) | payer OTHER ==
[2018-01-24 20:18] LABS: #Eosinphils 0.1 thou/uL (0.0-0.7); #Monocytes 0.4 thou/uL (0.11-0.59); #Neutrophils 3.4 thou/uL (1.40-6.50); %Basophils 0.6 % (0.0-1.0); %Eosinophils 1.5 % (0.0-10.0); %Lymphocytes 33.4 % (21.0-51.0); %Monocytes 6.1 % (0.0-10.0); %Neutrophils 58.4 % (42.0-75.0); Hemoglobin 13.1 g/dL (12.0-16.0); Mean Corpuscular HGB CONC 33.8 g/dL (32.0-36.0); Mean Corpuscular Hemoglobin 30.7 pg (27.0-31.0); Mean Corpuscular Volume 90.7 fL (78.0-98.0); Mean Platelet Volume 6.8 fL (7.4-10.4); Platelet Count 247 thou/uL (130-400); RBC Distribution Width 12.7 % (11.5-14.5); Red Blood Cell (RBC) Count 4.27 mill/uL (4.20-5.40); White Blood Cell (WBC) Count 5.9 thou/uL (4.8-10.8)
[2018-01-24 20:35] LABS: ALT (SGPT) 17 U/L (8-55); AST (SGOT) 21 U/L (5-34); Albumin 3.9 g/dL (3.5-5.0); Alkaline Phosphatase 72 U/L (40-150); Anion Gap 11 mmol/L (10-20); BUN (Urea Nitrogen) 11 mg/dL (7.0-18.7); Bilirubin, Total 0.4 mg/dL (0.2-1.2); Calc. Creatinine Clearance 0 mL/min (70-130); Calcium 9.2 mg/dL (7.8-10.44); Carbon Dioxide 26 mmol/L (22-29); Chloride 105 mmol/L (98-107); Estimated GFR-MDRD Greater than 90; Globulin 2.9 g/dL (2.4-3.5); Glucose 82 mg/dL (70-105); Protein, Total 6.8 g/dL (6.0-8.3); Sodium 138 mmol/L (136-145)
[2018-01-24 21:22] LABS: Bilirubin Negative (Negative); Blood, Urine Negative (Negative); Clarity CLEAR (Clear); Glucose, Urine (Dipstick) Negative (Negative); Leukocyte Small (Negative); Nitrite Negative (Negative); Protein, Urine (Dipstick) Negative (Neg-Trace); Specific Gravity, Urine 1.021 (1.002-1.036); pH, Urine 6.5 (5.0-9.0)
[2018-01-24 21:25] LABS: Bacteria/HPF None Seen HPF (None Seen); Hyaline Casts/LPF 0-3 HYALINE CAST LPF (0-3 Hyaline); RBC/HPF 0-3 HPF (0-3)
== END 2018-01-24 22:40 ==
LOC: ERS 19:31
DX: K59.00 Constipation, unspecified (principal); F17.210 Nicotine dependence, cigarettes, uncomplicated
CPT/HCPCS: 36415; 80053; 81003; 81015; 83690; 85025; 99284

== ENCOUNTER 2018-03-01 22:09 | Emergency (ER) | payer OTHER ==
[2018-03-02] MEDS ORDERED: Ketorolac Tromethamine 30 MG/ML VIAL ONE (01:41)
== END 2018-03-02 01:58 | disposition home or self-care (01) ==
LOC: ERS 22:09
DX: M62.838 Other muscle spasm (principal); F17.210 Nicotine dependence, cigarettes, uncomplicated; V89.2XXA Person injured in unspecified motor-vehicle accident, traffic, initial encounter
CPT/HCPCS: 96372; J1885

== ENCOUNTER 2019-05-03 15:24 | Emergency (ER) | payer MEDICAID, SELFPAY | END 2019-05-03 16:00 | disposition home or self-care (01) | LOC: ERS 15:24 | DX: O99.89 Other specified diseases and conditions complicating pregnancy, childbirth and the puerperium (principal); H10.9 Unspecified conjunctivitis; O99.333 Smoking (tobacco) complicating pregnancy, third trimester; F17.210 Nicotine dependence, cigarettes, uncomplicated; Z3A.00 Weeks of gestation of pregnancy not specified | CPT/HCPCS: 99282 ==

== ENCOUNTER 2019-06-27 18:26 | Day surgery (SDC) | payer OTHER ==
[2019-06-27 19:01] VITALS: BMI 36.1
[2019-06-27 19:03] VITALS: BP 136/71; TEMP 99
[2019-06-27] MEDS ORDERED: hydrALAZINE 20 MG/ML VIAL SLOW IVP PRN (19:09)
[2019-06-27] MEDS ORDERED: FLU VACC QS2019-20(6MOS UP)/PF 60 MCG/0.5 ML SYRINGE IM ONE (19:15)
[2019-06-27 20:18] LABS: Mucous/LPF Rare LPF (<2+)
[2019-06-27 20:22] LABS: Amphetamine Not Detected (NotDetected); Barbiturates Screen Not Detected (NotDetected); Benzodiazepine Screen Not Detected (NotDetected); Cocaine Metabolite Screen Not Detected (NotDetected); Medtox Control Line Valid? VALID (VALID); Medtox Reader # READER 4; Methadone Not Detected (NotDetected); Methamphetamine Not Detected (NotDetected); Opiate Screen Not Detected (NotDetected); Oxycodone Screen Not Detected (NotDetected); Phencyclidine (PCP) Not Detected (NotDetected); THC/Cannabinoid Screen Detected (NotDetected); Tricyclic Screen Not Detected (NotDetected)
[2019-06-27 20:27] LABS: Bacteria/HPF 3+ HPF (None Seen)
[2019-06-27 20:35] LABS: Creatinine, Urine 232.91 mg/dL (47-110)
[2019-06-27 20:56] LABS: #Lymphocytes 0.6 thou/uL (1.20-3.40); #Monocytes 0.5 thou/uL (0.11-0.59); #Neutrophils 5.5 thou/uL (1.40-6.50); %Basophils 0.3 % (0.0-1.0); %Eosinophils 0.1 % (0.0-10.0); %Lymphocytes 8.6 % (21.0-51.0); %Monocytes 8.1 % (0.0-10.0); %Neutrophils 82.9 % (42.0-75.0); Hemoglobin 11.7 g/dL (12.0-16.0); Mean Corpuscular HGB CONC 35.1 g/dL (32.0-36.0); Mean Corpuscular Hemoglobin 31.4 pg (27.0-31.0); Mean Corpuscular Volume 89.5 fL (78.0-98.0); Mean Platelet Volume 7.6 fL (7.4-10.4); Platelet Count 197 thou/uL (130-400); RBC Distribution Width 12.1 % (11.5-14.5); Red Blood Cell (RBC) Count 3.73 mill/uL (4.20-5.40); White Blood Cell (WBC) Count 6.6 thou/uL (4.8-10.8)
[2019-06-27 21:19] LABS: ALT (SGPT) 18 U/L (8-55); AST (SGOT) 24 U/L (5-34); Albumin 3.5 g/dL (3.5-5.0); Alkaline Phosphatase 222 U/L (40-110); Anion Gap 14 mmol/L (10-20); BUN (Urea Nitrogen) 5 mg/dL (7.0-18.7); Bilirubin, Total 0.6 mg/dL (0.2-1.2); Calc. Creatinine Clearance 191 mL/min (70-130); Calcium 8.9 mg/dL (7.8-10.44); Carbon Dioxide 21 mmol/L (22-29); Chloride 104 mmol/L (98-107); Estimated GFR-MDRD Greater than 90; Globulin 3.4 g/dL (2.4-3.5); Glucose 75 mg/dL (70-105); Potassium 3.5 mmol/L (3.5-5.1); Protein, Total 6.9 g/dL (6.0-8.3); Sodium 135 mmol/L (136-145)
[2019-06-27 21:36] LABS: Syphilis Antibody Nonreactive (Nonreactive); Syphilis Antibody Index 0.05 S/CO (<1.00 Non-Reactive)
[2019-06-27 22:07] LABS: HIV (1/2) Antibody/Antigen Non-Reactive (NonReactive); HIV 1/2 INDEX 0.08 S/CO (<1.00)
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
[2019-06-28 22:41] LABS: Chlamydia by PCR Not Detected (NotDetected); GC by PCR Not Detected (NotDetected)
== END 2019-06-27 22:10 | disposition home or self-care (01) ==
LOC: L&D/OP 18:26
PROVIDERS: ATTEND Family Medicine
DX: O47.1 False labor at or after 37 completed weeks of gestation (principal); O09.33 Supervision of pregnancy with insufficient antenatal care, third trimester; O23.593 Infection of other part of genital tract in pregnancy, third trimester; B96.89 Other specified bacterial agents as the cause of diseases classified elsewhere; O98.813 Other maternal infectious and parasitic diseases complicating pregnancy, third trimester; B37.9 Candidiasis, unspecified; Z3A.38 38 weeks gestation of pregnancy; Z91.010 Allergy to peanuts
CPT/HCPCS: 36415; 80053; 80306; 81015; 82570; 84156; 85025; 86780; 87081; 87086; 87389; 87480; 87491; 87510; 87591; 87660; 99285

== ENCOUNTER 2019-06-28 11:38 | Inpatient (IN) | payer OTHER ==
[2019-06-28] MEDS ORDERED: hydrALAZINE 20 MG/ML VIAL SLOW IVP PRN (12:02)
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
[2019-06-28] MEDS ORDERED: Ibuprofen 800 MG TAB PO PRN ×2 (12:15→14:25)
[2019-06-28] MEDS ORDERED: Misoprostol 200 MCG TAB PR PRN (12:15)
[2019-06-28] MEDS ORDERED: Ondansetron PF 4 MG/2 ML Vial IVP PRN ×2 (12:15→14:02)
[2019-06-28] MEDS ORDERED: Carboprost 250 MCG/ML AMP IM PRN (12:15)
[2019-06-28] MEDS ORDERED: NS w/ Oxytocin 10 units 500 ML IV SCH ×2 (12:15)
[2019-06-28] MEDS ORDERED: Penicillin G Potassium 5 MILL.UNITS in Sodium Chloride 0.9% 100 ML IVPB SCH (12:15)
[2019-06-28] MEDS ORDERED: Methylergonovine 0.2 MG/ML VIAL IM PRN (12:15)
[2019-06-28] MEDS ORDERED: Lidocaine 1% (PF) 30 ML VIAL SC PRN (12:15)
[2019-06-28] MEDS ORDERED: Acetaminophen 500 MG TAB PO PRN (12:15)
[2019-06-28] MEDS ORDERED: Promethazine HCl 25 MG/ML VIAL IM PRN ×2 (12:15→14:02)
[2019-06-28] MEDS ORDERED: Butorphanol Tartrate 1 MG/ML VIAL SLOW IVP PRN (12:15)
[2019-06-28] MEDS ORDERED: Penicillin G 2.5 MILL.units 2.5 MILL.UNITS in Premix Bag 1 BAG IVPB SCH (12:15)
[2019-06-28] MEDS: Lactated Ringer's 1,000 ML IV SCH ×2 (12:22→14:19)
[2019-06-28] MEDS ORDERED: Penicillin G Potassium 5 MILL.UNITS VIAL ONE (12:23)
[2019-06-28 12:37] LABS: Amnisure Test RUPTURE DETECTED (No Rupture)
[2019-06-28 12:38] LABS: Amnisure Internal Control QC ACCEPTABLE (ACCEPTABLE)
[2019-06-28] MEDS ORDERED: Fentanyl 4 mcg/Bup 0.1% Cadd 100 ML ONE (12:51)
[2019-06-28 12:56] VITALS: BMI 36.1
[2019-06-28 13:03] LABS: #Lymphocytes 1.1 thou/uL (1.20-3.40); #Neutrophils 7.1 thou/uL (1.40-6.50); %Basophils 0.3 % (0.0-1.0); %Eosinophils 0.2 % (0.0-10.0); %Lymphocytes 11.7 % (21.0-51.0); %Monocytes 10.6 % (0.0-10.0); %Neutrophils 77.2 % (42.0-75.0); Hemoglobin 11.6 g/dL (12.0-16.0); Mean Corpuscular HGB CONC 34.4 g/dL (32.0-36.0); Mean Corpuscular Hemoglobin 30.7 pg (27.0-31.0); Mean Corpuscular Volume 89.1 fL (78.0-98.0); Mean Platelet Volume 7.7 fL (7.4-10.4); Platelet Count 192 thou/uL (130-400); RBC Distribution Width 12.1 % (11.5-14.5); Red Blood Cell (RBC) Count 3.77 mill/uL (4.20-5.40); White Blood Cell (WBC) Count 9.2 thou/uL (4.8-10.8)
--- NOTE | 2019-06-28 13:33 | PDOC.LDPN ---
Labor & Delivery Progress Note - Subjective Subjective: painful contractions, vaginal pressure - Objective Vital signs reviewed and normal: yes General: NAD, breathing through contractions Uterine fundus: non tender SVE: 12:45 Dilation: 6 Effacement: 90% Station: -1 FHT: category 2, early decelerations, late decelerations [place] contractions every: 2-3 minutes IUPC placed: yes - Assessment (1) Gestational hypertension Code(s): O13.9 - GESTATIONAL HTN W/O SIGNIFICANT PROTEINURIA, UNSP TRIMESTER Current Visit: No Status: Acute Qualifiers: (2) Marijuana use Code(s): F12.90 - CANNABIS USE, UNSPECIFIED, UNCOMPLICATED Current Visit: No Status: Acute Comment: UDS negative (3) Third trimester Code(s): Z34.93 - ENCNTR FOR SUPRVSN OF NORMAL PREG, UNSP, THIRD TRIMESTER Current Visit: No Status: Acute Plan: continue plan of care -: This is a 23 yo @ 39 wks by 7.6 wk sono found to be in Labor. # - missed lots of care -Pt making significant change. In labor at this time. Amnisure positive. -SVE @ 1245 /-1 -Cat 2 strip. Some lates but mostly earlys noted. IUPC placed to get better reading of ctx with FHR. -GBS pending, was positive during last , will initiate treatment -GC/CT taken, pending -BV treated with flagyl, Chary with topical clotrimazole at visit yesterday. Will continue -Expect at this time. Gestational Hypertension -Last night: Pr/Cr 0.094, cbc, cmp appropriate -Elevated BP readings today, no severe range pressures - will recheck pre-e labs -prn hydralazine available Marijuana Use in -Will consult case management.
[2019-06-28 13:42] LABS: Syphilis Antibody Nonreactive (Nonreactive); Syphilis Antibody Index 0.05 S/CO (<1.00 Non-Reactive)
[2019-06-28 13:43] LABS: HBSAg Index 0.18 S/CO (0-0.99); Hep B Surf Ag Non-Reactive S/CO (NonReactive)
[2019-06-28 13:45] LABS: ALT (SGPT) 21 U/L (8-55); AST (SGOT) 44 U/L (5-34); Albumin 3.4 g/dL (3.5-5.0); Alkaline Phosphatase 217 U/L (40-110); Anion Gap 18 mmol/L (10-20); BUN (Urea Nitrogen) 7 mg/dL (7.0-18.7); Bilirubin, Total 0.7 mg/dL (0.2-1.2); Calc. Creatinine Clearance 184 mL/min (70-130); Calcium 8.9 mg/dL (7.8-10.44); Carbon Dioxide 14 mmol/L (22-29); Chloride 105 mmol/L (98-107); Estimated GFR-MDRD Greater than 90; Globulin 3.7 g/dL (2.4-3.5); Glucose 65 mg/dL (70-105); Potassium 4.3 mmol/L (3.5-5.1); Protein, Total 7.1 g/dL (6.0-8.3); Sodium 133 mmol/L (136-145)
[2019-06-28] MEDS ORDERED: Naloxone HCl 0.4 mg/ml Vial IVP PRN ×2 (14:02)
[2019-06-28] MEDS ORDERED: diphenhydrAMINE 50 MG/ML VIAL IVP PRN (14:02)
[2019-06-28] MEDS ORDERED: Lactated Ringer's 500 ML IV PRN (14:02)
[2019-06-28] MEDS ORDERED: ePHEDrine/0.9% NaCl/PF SYRINGE 50 mg/10 ml SLOW IVP PRN (14:02)
[2019-06-28] MEDS ORDERED: Acetaminophen 325 MG TAB PO PRN (14:02)
--- NOTE | 2019-06-28 14:11 | PDOC.LDPN ---
Labor & Delivery Progress Note - Subjective Subjective: comfortable, vaginal pressure - Objective Vital signs reviewed and normal: yes General: NAD, breathing through contractions Uterine fundus: non tender SVE: 2:00 Dilation: 9.5 Effacement: 90% Station: 1+ FHT: category 2, late decelerations, variability present [place] contractions every: 2 minutes IUPC placed: yes Resuscitative measures: amniofusion - Assessment (1) Gestational hypertension Code(s): O13.9 - GESTATIONAL HTN W/O SIGNIFICANT PROTEINURIA, UNSP TRIMESTER Current Visit: No Status: Acute Qualifiers: (2) Marijuana use Code(s): F12.90 - CANNABIS USE, UNSPECIFIED, UNCOMPLICATED Current Visit: No Status: Acute Comment: UDS negative (3) Third trimester Code(s): Z34.93 - ENCNTR FOR SUPRVSN OF NORMAL PREG, UNSP, THIRD TRIMESTER Current Visit: No Status: Acute (4) Tobacco abuse Code(s): Z72.0 - TOBACCO USE Current Visit: No Status: Acute Comment: Stopped in 2nd trimester Plan: continue plan of care -: This is a 23 yo @ 39 wks by 7.6 wk sono found to be in Labor. # - missed lots of care -Pt making significant change. In labor at this time. Amnisure positive. -SVE @ 14:00 /+1. Anterior Lip -Cat 2 strip. Pt having some consistent lates. Will start amnioinfusion at this time. . -GBS pending, was positive during last , will initiate treatment -GC/CT taken, pending -BV treated with flagyl, Chary with topical clotrimazole at visit yesterday. Will continue -Expect at this time. Gestational Hypertension -Last night: Pr/Cr 0.094, cbc, cmp appropriate -Elevated BP readings today, no severe range pressures - will recheck pre-e labs -prn hydralazine available -AST [facility] Marijuana Use in -Will consult case management.
[2019-06-28] MEDS ORDERED: Preparation H Ointment 28 GM TUBE PR PRN (14:14)
[2019-06-28] MEDS ORDERED: Lanolin Ointment 7 GM TUBE TOP PRN (14:14)
[2019-06-28] MEDS ORDERED: Bisacodyl 10 MG SUPP PR PRN (14:14)
[2019-06-28] MEDS ORDERED: diphenhydrAMINE 25 MG CAP PO PRN (14:14)
[2019-06-28] MEDS ORDERED: Benzocaine-Menthol 82.5 ML CAN TOP PRN (14:14)
[2019-06-28] MEDS ORDERED: Milk Of Magnesia 30 ML UDCUP PO PRN (14:14)
[2019-06-28] MEDS ORDERED: Adacel (T-DAP) 0.5 ML SYRINGE IM ONE (14:14)
[2019-06-28] MEDS ORDERED: Fentanyl 4 mcg/Bupivacaine 0.1% Cassette 100 ML EPIDURAL SCH (14:15)
[2019-06-28] MEDS ORDERED: Communication Order-Pharmacy FS SCH (14:15)
[2019-06-28] MEDS: NS / Oxytocin 40 units/1000ml 1,000 ML IV PRN ×2 (14:35→16:30)
--- NOTE | 2019-06-28 15:14 | DN ---
DATE OF PROCEDURE: 06/28/2019 RESIDENTS: 1. Omkar Ramires DO, PGY-1. 2. Jefferson Fregoso MD, PGY-3. PROCEDURE PERFORMED: Spontaneous vaginal delivery. ANESTHESIA: Epidural. QUANTITATIVE BLOOD LOSS: 50 mL. PREOPERATIVE DIAGNOSES: 1. Term intrauterine in labor. 2. Gestational hypertension. 3. Marijuana use in . 4. Vaginitis infection, BV positive and Chary positive. 5. Group B Streptococcus, unknown. POSTOPERATIVE DIAGNOSES: 1. Term intrauterine , delivered. 2. Gestational hypertension. 3. Marijuana use in . 4. Vaginitis infection, BV positive and Chary positive. 5. Group B Streptococcus, unknown. INDICATIONS FOR PROCEDURE: A 24-year-old female, G2, P1, at 39 weeks, presents in active labor. DELIVERY NOTE: This is a 24-year-old female, G2, P1-0-0-1, at 39 weeks, who delivered a viable male at 1430 hours. Following an uneventful antepartum course, the patient had poor care, did not follow up for routine visits. She had come in earlier the night prior, diagnosed with vaginitis infection with BV and Chary infection. Gonorrhea and chlamydia are still pending. She also was found to be marijuana positive on urine drug screen during that time. Next, following this, a vigorous male was delivered over an intact perineum in the occiput anterior position. Anterior shoulder and remainder of the body was delivered. Nuchal cord x1. Body cord x1. Head was held down. The mouth and nares were bulb suctioned. Cord clamped and cord blood collected. Placenta delivered intact with a three-vessel cord noted. Fundal massage was performed and the fundus was firm. The cervix and vagina were inspected to be found free of lacerations. Infant went to the nursery in good condition for routine care. was found to have an accessory digit on the left hand by his pinky and also had two mandy teeth noted. Apgars were 8 and 9 at 1 and 5 minutes respectively. The patient tolerated delivery and went to after routine recovery care. Job ID: [id number]
[2019-06-28] MEDS ORDERED: Ferrous Sulfate 325 MG TAB PO SCH (17:00)
[2019-06-28] MEDS: Ibuprofen 800 MG TAB PO PRN (20:49)
[2019-06-28] MEDS: Docusate Calcium (SURFAK) 240 MG CAP PO SCH (20:49)
[2019-06-29] MEDS: Ibuprofen 800 MG TAB PO PRN ×3 (05:58→22:13)
--- NOTE | 2019-06-29 06:32 | PDOC.PP ---
Post Progress Note Post Day #: 1 Subjective: Pt reports she is doing well today. Having some difficulty with breast feeding. Reports minimal pain. Next to no lochia. Tolerating PO and passing flatus. PO intake tolerated: yes Flatus: yes Ambulation: yes Vital Signs (12 hours) Temp Pulse Resp BP Pulse Ox 06/29/19 04:40 98.0 F 71 18 120/66 06/29/19 00:45 98.6 F 92 18 125/64 06/28/19 19:20 99.8 F H 96 20 135/83 97 06/28/19 18:40 99.1 F 98 18 132/65 100 Weight Weight 98.43 kg - Physical Examination General: NAD Cardiovascular: no m/r/g, RRR Respiratory: clear to auscultation bilaterally, non-labored breathing Abdominal: + bowel sounds, lochia, no distention, appropriately TTP Skin: no rash Neurological: no gross focal deficits Psychiatric: A&Ox3, normal affect Result Diagrams: 06/28/19 12:54 06/28/19 12:54 Additional Labs: Post Labs Blood Type A POSITIVE 06/28/19 12:54 Hep Bs Antigen Non-Reactive S/CO (NonReactive) 06/28/19 12:54 (1) History of group B Streptococcus (GBS) infection Code(s): Z86.19 - PERSONAL HISTORY OF OTHER INFECTIOUS AND PARASITIC DISEASES Status: Acute (2) care following vaginal delivery Code(s): Z39.2 - ENCOUNTER FOR ROUTINE FOLLOW-UP Status: Acute (3) Gestational hypertension Code(s): O13.9 - GESTATIONAL HTN W/O SIGNIFICANT PROTEINURIA, UNSP TRIMESTER Status: Acute Qualifiers: (4) Marijuana use Code(s): F12.90 - CANNABIS USE, UNSPECIFIED, UNCOMPLICATED Status: Acute Comment: UDS negative - Assessment/Plan 24 yo s/p on 06/28 @ 1430 Post Care - Breast and bottle feeding - consultation placed - Pain controlled - Minimal lochia - Continue routine post care Gestational Hypertension - BP WNL since delivery - Will continue to monitor and trend Dispo: Continue routine post care. Expect DC home tomorrow Addendum - Attending - Attending Attestation Date/Time: 06/29/19 1233 I personally evaluated the patient and discussed the management with Dr. Ramires. I agree with the History, Examination, Assessment and Plan documented above with any addition or exceptions noted below.
[2019-06-29] MEDS: Prenatal Vitamin 1 TAB PO SCH (08:30)
[2019-06-29] MEDS: Docusate Calcium (SURFAK) 240 MG CAP PO SCH ×2 (09:36→23:24)
[2019-06-30] MEDS: Ibuprofen 800 MG TAB PO PRN (06:41)
--- NOTE | 2019-06-30 07:36 | PDOC.PP ---
Post Progress Note Post Day #: 2 Subjective: pt continues to do well. Reports that her breast feeding is going better. Denies any pain related to teeth with feeding. Reports cessation of lochia. Pain is controlled with prns. Tolerating PO and has had a bowel movement. PO intake tolerated: yes Flatus: yes Ambulation: yes Vital Signs (12 hours) Temp Pulse Resp BP Pulse Ox 06/29/19 19:58 97.8 F 60 18 116/58 L 98 Weight Weight 98.43 kg - Physical Examination General: NAD Cardiovascular: no m/r/g, RRR Respiratory: clear to auscultation bilaterally, non-labored breathing Abdominal: + bowel sounds, no distention, appropriately TTP Skin: no rash Neurological: no gross focal deficits Psychiatric: A&Ox3, normal affect Result Diagrams: 06/28/19 12:54 06/28/19 12:54 Additional Labs: Post Labs Blood Type A POSITIVE 06/28/19 12:54 Hep Bs Antigen Non-Reactive S/CO (NonReactive) 06/28/19 12:54 (1) History of group B Streptococcus (GBS) infection Code(s): Z86.19 - PERSONAL HISTORY OF OTHER INFECTIOUS AND PARASITIC DISEASES Status: Acute (2) care following vaginal delivery Code(s): Z39.2 - ENCOUNTER FOR ROUTINE FOLLOW-UP Status: Acute (3) Gestational hypertension Code(s): O13.9 - GESTATIONAL HTN W/O SIGNIFICANT PROTEINURIA, UNSP TRIMESTER Status: Acute Qualifiers: (4) Marijuana use Code(s): F12.90 - CANNABIS USE, UNSPECIFIED, UNCOMPLICATED Status: Acute Comment: UDS negative - Assessment/Plan 24 yo s/p on 06/28 @ 1430 Post Care - Breast and bottle feeding - contaminated land consultant saw yesterday - gave recommendations and education on risks of marijuana transmission to breast milk - Pain controlled - Minimal lochia - Continue routine post care Gestational Hypertension - BP WNL since delivery - Will continue to monitor and trend Substance Abuse - THC + UDS - CM consulted, CPS contacted, will be following up w/ pt today prior to discharge Dispo: Continue routine post care. Expect DC home later today. Addendum - Attending - Attending Attestation Date/Time: 06/30/19 1130 I personally evaluated the patient and discussed the management with the team. I agree with the History, Examination, Assessment and Plan documented above with any addition or exceptions noted below. Ok for d/c, bp check in 1 week.
[2019-06-30] MEDS: Prenatal Vitamin 1 TAB PO SCH (08:22)
[2019-06-30] MEDS: Docusate Calcium (SURFAK) 240 MG CAP PO SCH (08:23)
[2019-06-30 08:38] VITALS: BP 119/69; TEMP 97.9
== END 2019-06-30 12:48 | disposition home or self-care (01) | DRG 806 ==
LOC: L&D/OP 11:38 → L&D 14:06 → 3SE 17:49
PROVIDERS: ADMIT Family Medicine; ATTEND Family Medicine
PROC: 10E0XZZ Delivery of Products of Conception, External Approach (ICD-10-PCS; principal; 2019-06-28)
PROC: 10H07YZ Insertion of Other Device into Products of Conception, Via Natural or Artificial Opening (ICD-10-PCS; 2019-06-28)
DX: O13.4 Gestational [pregnancy-induced] hypertension without significant proteinuria, complicating childbirth (principal); O98.82 Other maternal infectious and parasitic diseases complicating childbirth; Z37.0 Single live birth; Z3A.39 39 weeks gestation of pregnancy; O76 Abnormality in fetal heart rate and rhythm complicating labor and delivery; F12.90 Cannabis use, unspecified, uncomplicated; O99.323 Drug use complicating pregnancy, third trimester; O99.334 Smoking (tobacco) complicating childbirth; F17.200 Nicotine dependence, unspecified, uncomplicated; O75.3 Other infection during labor; B96.89 Other specified bacterial agents as the cause of diseases classified elsewhere; B37.3 Candidiasis of vulva and vagina; O69.81X0 Labor and delivery complicated by cord around neck, without compression, not applicable or unspecified; O69.82X0 Labor and delivery complicated by other cord entanglement, without compression, not applicable or unspecified
CPT/HCPCS: 36415; 80053; 80306; 81003; 81015; 82570; 84112; 84156; 85025; 86780; 86850; 86900; 86901; 87081; 87086; 87340; 87389; 87480; 87491; 87510; 87591; 87660; 99285; J2001; J2540

== ENCOUNTER 2022-09-24 16:09 | Emergency (ER) | payer SELFPAY ==
[2022-09-24 17:46] LABS: SARS-CoV-2 NAA Rapid Test Not Detected (NotDetected)
[2022-09-24] MEDS ORDERED: Dexameth. Sod Phosp. 10 MG/ML (CHEMO USE ONLY) ONE (18:04)
== END 2022-09-24 18:09 | disposition home or self-care (01) ==
LOC: ERS 16:09
DX: J06.9 Acute upper respiratory infection, unspecified (principal); F17.210 Nicotine dependence, cigarettes, uncomplicated; Z20.822 Contact with and (suspected) exposure to COVID-19
CPT/HCPCS: 87081; 87430; 99283; J1100

== ENCOUNTER 2022-09-28 18:48 | Emergency (ER) | payer OTHER, SELFPAY ==
[2022-09-28 21:57] LABS: #Eosinphils 0.1 thou/uL (0.0-0.7); #Lymphocytes 1.7 thou/uL (1.20-3.40); #Monocytes 0.9 thou/uL (0.11-0.59); #Neutrophils 5.7 thou/uL (1.40-6.50); %Basophils 0.5 % (0.0-1.0); %Eosinophils 1.3 % (0.0-10.0); %Monocytes 10.8 % (0.0-10.0); %Neutrophils 67.4 % (42.0-75.0); Hemoglobin 13.2 g/dL (12.0-16.0); Mean Corpuscular HGB CONC 34.3 g/dL (32.0-36.0); Mean Corpuscular Hemoglobin 30.3 pg (27.0-31.0); Mean Corpuscular Volume 88.2 fl (78.0-98.0); Mean Platelet Volume 7.9 fL (7.4-10.4); Platelet Count 256 10x3/uL (130-400); RBC Distribution Width 13.9 % (11.5-14.5); Red Blood Cell (RBC) Count 4.35 mill/uL (4.20-5.40); White Blood Cell (WBC) Count 8.5 10x3/uL (4.8-10.8)
[2022-09-28 22:05] LABS: Bacteria/HPF None Seen HPF (None Seen); Bilirubin Negative (Negative); Blood, Urine 3+ (Negative); Clarity Clear (Clear); Glucose, Urine (Dipstick) Normal (Negative); Ketone, Urine 80 mg/dL (Negative); Leukocyte Negative Leu/uL (Negative); Nitrite Negative (Negative); Protein, Urine (Dipstick) 20 mg/dL (Neg-Trace); RBC/HPF Greater than 50 HPF (0-3); Specific Gravity, Urine 1.024 (1.002-1.036); Squamous Epithelial 0-3 HPF (0-3); Urobilinogen Greater than 12 mg/dL (Less than 2); WBC/HPF 0-3 HPF (0-3); pH, Urine 6.5 (5.0-9.0)
[2022-09-28 22:19] LABS: ALT (SGPT) 26 U/L (8-55); AST (SGOT) 19 U/L (5-34); Albumin 4.1 g/dL (3.5-5.0); Alkaline Phosphatase 72 U/L (40-110); Anion Gap 12 mmol/L (10-20); BUN (Urea Nitrogen) 6 mg/dL (7.0-18.7); Bilirubin, Total 0.8 mg/dL (0.2-1.2); Calc. Creatinine Clearance 0 mL/min (70-130); Calcium 9.1 mg/dL (7.8-10.44); Carbon Dioxide 25 mmol/L (22-29); Chloride 104 mmol/L (98-107); Estimated GFR 109; Globulin 3.3 g/dL (2.4-3.5); Glucose 98 mg/dL (70-105); Potassium 3.3 mmol/L (3.5-5.1); Protein, Total 7.4 g/dL (6.0-8.3); Sodium 138 mmol/L (136-145)
[2022-09-28 22:31] LABS: BHCG - Serum Negative (NEGATIVE); Pregs Control Background? CLEAR/WHITE (CLR/WHITE); Pregs Control Bar Appear? YES (CONTROL BAR)
[2022-09-28] MEDS ORDERED: Potassium Chloride 20 MEQ TAB ONE (23:08)
[2022-09-29 15:38] LABS: Chlamydia by PCR DETECTED (NotDetected); GC by PCR Not Detected (NotDetected)
== END 2022-09-28 23:11 | disposition home or self-care (01) ==
LOC: ERS 18:48
DX: J06.9 Acute upper respiratory infection, unspecified (principal); R30.0 Dysuria; F17.210 Nicotine dependence, cigarettes, uncomplicated
CPT/HCPCS: 36415; 71045; 80053; 81003; 81015; 82550; 84703; 85025; 87480; 87491; 87510; 87591; 87660